=== PATIENT | male | born 1960 | race African-American/Black ===

== ENCOUNTER 2021-04-23 09:34 | Emergency (ER) | payer MEDICAID, OTHER ==
[~2021-04-23] VITALS: Ht 172.7 cm; Wt 104.3 kg
[2021-04-23 10:10] LABS: Basophils # (auto) 0.1 10 ^3/uL (0-0.2); Basophils % (auto) 0.7 % (0.0-2.0); Eosinophils # (auto) 0.1 10 ^3/uL (0-0.8); Eosinophils % (auto) 1.4 % (0.0-7.0); Hematocrit 38.1 % (41.0-53.0); Hemoglobin 12.7 g/dL (13.5-17.5); Lymphocytes % (auto) 23.2 % (10.0-50.0); Mean Corpuscular Hemoglobin 29.3 pg (28.0-32.0); Mean Corpuscular Hgb Conc. 33.3 g/dL (32.0-36.0); Mean Corpuscular Volume 87.8 fL (80.0-100.0); Monocytes # (auto) 0.6 10 ^3/uL (0-1.3); Monocytes % (auto) 7.5 % (0.0-12.0); Neutrophils # (auto) 5.8 10 ^3/uL (1.6-8.6); Neutrophils % (auto) 67.2 % (37.0-80.0); Nucleated Red Blood Cells % 0.2 %; Red Blood Cells 4.33 10^6/uL (4.5-5.90); Red Cell Distribution Width 15.8 % (11.8-14.3); White Blood Cell 8.6 10^3/uL (4.4-10.8)
[2021-04-23 10:18] LABS: Albumin 3.5 g/dL (3.4-5.0); Calcium 9.3 mg/dL (8.5-10.1)
[2021-04-23 10:21] LABS: BUN/Creatinine Ratio 12.8; Bilirubin, Total 0.5 mg/dL (0.2-1.0); Total Protein 7.8 g/dL (6.4-8.2)
[2021-04-23 10:29] LABS: Potassium 3.8 mmol/L (3.5-5.1)
[2021-04-23 10:44] LABS: INR 0.96 (0.9-1.15); Partial Thromboplastin Time 25.5 sec (23.0-31.2)
[2021-04-23] MEDS ORDERED: CLOPIDOGREL BISULFATE 75 MG TAB PO ONE (11:00)
[2021-04-23 11:48] VITALS: BP 217/102
== END 2021-04-23 12:04 | disposition short-term general hospital (02) ==
LOC: ER 09:34
DX: I63.9 Cerebral infarction, unspecified (principal); I10 Essential (primary) hypertension
CPT/HCPCS: 36415; 70450; 80053; 85025; 85610; 85730; 93005